=== PATIENT | female | born 1970 | race American Indian/Alaskan Native ===

== ENCOUNTER 2021-04-19 11:22 | Day surgery (SDC) | payer BC ==
--- NOTE | 2021-04-14 07:59 | History and Physical Report ---
History of Present Illness Date of examination: 04/12/21 History of present illness: Patient has been reassessed/reevaluated. H&P has been reviewed. No interval changes. This is a 50 years old female who presents with menstrual disorder. The symptoms began 3 months ago. She complains of heavy bleeding, dysmenorrhea, clotting, history of fibroids, fatigue and cramping. Interval between menses is 28 days and 30 days. Menstrual flow lasts > 7 days. Patient's work up has included a transvaginal ultrasound which revealed multiple leiomyomas. Patient's symptoms when present disrupts her normal daily activities Patient desires definitive treatment ] Vital Signs: Patient Profile: 50 Years Old Female LMP: 04/12/2021 Height: 72 inches Weight: 245 pounds BMI: 33.22 Temp: 98.1 degrees F BP sittin / 80 (left arm) Menstrual History: LMP (date): 04/12/2021 LMP - Character: heavy Menarche: 15 Menses interval: 28-30 days Menstrual flow: 5-7 days Current Method of Contraception: None Past History : 7 Term Births: 4 Premature Births: 0 Living Children: 4 Para: 4 Mult. Births: 0 Prev : 0 Aborta: 3 Elect. Ab: 1 Spont. Ab: 2 Ectopics: 0 Current Allergies (reviewed today): No known allergies Past Medical History: Glaucoma Anesthetic Complications Anemia (2015) Blood Transfusion (2016) Fibroids Past Surgical History: Myomectomy (2015) Cholecystectomy D&C: Father - Has Heart Disease - Entered On: 03/02/2021 Father - Has Diabetes - Entered On: 03/02/2021 Mother - Has Hypertension - Entered On: 03/02/2021 Father - Has Hypertension - Entered On: 03/02/2021 Social History: Marital Status: /Engaged Children: Occupation: Health dept COVID response Smoking History: Patient is a former smoker. Risk Factors: Smoked Tobacco Use: Never smoker Smokeless Tobacco Use: Never Passive Smoke Exposure: no HIV High Risk Behavior: low risk Caffeine Use: 0 drinks per day Exercise: no Seatbelt Use: 100 % Alcohol Use: yes Type: occ Previous Tobacco Use: Signed On - 03/15/2021 Smoked Tobacco Use: Never smoker Smokeless Tobacco Use: Never Passive Smoke Exposure: no Alcohol Use: yes Type: occ Drug Use: no [employer] History Operations: Myomectomy (2016) Cholecystectomy D&C: Anesthesia Complications: yes Abnormal PAP: negative Uterine Anomaly: positive fibroids Infection History HIV Risk Eval: low risk Hepatitis B Risk Eval: low risk Hx of STD: gonorrhea Review of Systems General Complains of fatigue. Denies fever, chills, sweats, anorexia, weakness, malaise, weight loss and sleep disorder. Complains of menorrhagia and painful periods. Denies vaginal discharge, incontinence, dysuria, hematuria, urinary frequency, amenorrhea, abnormal vaginal bleeding, pelvic pain, genital sores, decreased libido, painful sex, urinary urgency, hot flashes, vaginal dryness, va ginal itching and vaginal odor. CV Denies chest pains, palpitations, syncope, dyspnea on exertion, orthopnea, PND and peripheral edema. Resp Denies cough, dyspnea at rest, excessive sputum, hemoptysis, wheezing and pleurisy. GI Denies nausea, vomiting, diarrhea, constipation, change in bowel habits, abdominal pain, melena, hematochezia, jaundice, gas/bloating, indigestion/heartburn, dysphagia and odynophagia. Breast Denies left breast lump, right breast lump, nipple discharge, bloody discharge from nipple, breast pain, abnormal mammogram and breast enlargement. Psych Denies depression, anxiety, irritability and mood swings. Past History Past Medical History: other (See HPI for details) Past Surgical History: Other (See HPI for details) Social history: full code, other (See HPI for details) Family history: other (See HPI for details) Medications and Allergies Allergies Allergy/AdvReac Type Severity Reaction Status Date / Time banana Allergy Unknown Verified 04/14/21 15:51 codeine Allergy Tachycardia Verified 04/14/21 15:51 egg Allergy Unknown Verified 04/14/21 15:51 Fish Containing Products Allergy Unknown Verified 04/14/21 15:51 Home Medications Medication Instructions Recorded Confirmed Last Taken Type Brimonidine Tartrate/Timolol 1 drop OU HS 04/14/21 04/19/21 04/19/21 History [Combigan 0.2%-0.5% Eye Drops] Fexofenadine HCl [Deepa Allergy] 180 mg PO QAM 04/14/21 04/19/21 04/18/21 History Latanoprost 0.005% 1 drop OU BID 04/14/21 04/19/21 04/18/21 History Montelukast [Singulair] 10 mg PO QPM 04/14/21 04/19/21 04/18/21 History Sertraline [Zoloft] 25 mg PO QDAY 04/19/21 04/19/21 04/18/21 History Review of Systems Constitutional: other (See HPI for details) Exam - Physical Exam Narrative exam: HEENT: normocephalic, no lesions or deformities Chest: respiratory effort normal, clear to auscultation CV: regular, normal S1-S2, no murmur, no rub, no gallop Abdomen: Obese multiple surgical scar normal bowel sounds, soft, nontender, no HSM Neuro: no gross anomalities Extremities: no clubbing, cyanosis, or edema [employer] Exams Vulva/Vagina: No lesions, normal BUS, normal rugae Uterus: unable to palpate due to obesity Adnexae: unable to palpate due to obesity Rectovaginal: exam defered Results - Labs CBC & Chem 7: 04/15/21 11:45 Assessment and Plan - Patient Problems (1) Menorrhagia Current Visit: No Status: Acute Qualifiers: Menorrhagia type: premenopausal Qualified Code(s): N92.4 - Excessive bleeding in the premenopausal period Plan to address problem: Probably secondary to leiomyomas. Discussed with patient various medical, surgical and radiological therapies common for treatment including expectant management, myomectomy hysterectomy and uterine artery embolization. Patient desires ablation Information given Discussed risks and benefits of procedure. Informed endometrial ablation does not treat dymenorrhea or myoma and is less effective when myomas are present.. Patient does not desire future fertility. Patient desires least invasive procedure Discussed risk of surgery including infection, bleeding and risk of perforating her uterus. Discuused postoperative symptom of vaginal duscharge and uterine cramping. Questions answered. Patient understands and desires to proceed (2) Intramural leiomyoma of uterus Current Visit: No Status: Acute Plan to address problem: Probable etiology of #1 (3) Anemia Current Visit: No Status: Acute Qualifiers: Iron deficiency anemia type: chronic blood loss Plan to address problem: Probably secondary to # 1 (4) Glaucoma Current Visit: No Status: Chronic Qualifiers: Glaucoma stage: stage unspecified
[2021-04-15 12:49] LABS: Hematocrit 28.6 % (30.3-42.9); Hemoglobin 8.6 gm/dl (10.1-14.3); Mean Corpuscular HGB Conc 30 % (30-34); Platelet Count 363 K/mm3 (140-440); Red Cell Distribution Width 17.2 % (13.2-15.2)
[2021-04-15 16:41] LABS: Mean Corpuscular Volume 64 fl (79-97)
--- NOTE | 2021-04-19 11:03 | Anesthesia Day of Surgery ---
Anesthesia Day of Surgery - Day of Surgery Patient Examined: Yes Patient H&P Reviewed: Yes Patient is NPO: Yes
--- NOTE | 2021-04-19 11:04 | Anesthesia Consultation ---
Anesthesia Consult and Med Hx Date of service: 04/19/21 - Airway Anesthetic Teeth Evaluation: Good, Caps, Crowns, Bridges ROM Head & Neck: Adequate Mental/Hyoid Distance: Adequate Mallampati Class: Class II Intubation Access Assessment: Good - Pre-Operative Health Status ASA Pre-Surgery Classification: ASA2 Proposed Anesthetic Plan: General - Central Nervous System Hx Psychiatric Problems: Yes (Anxiety/Depression) - Gastrointestinal Hx Gastroesophageal Reflux Disease: No - Hematic Hx Anemia: Yes (8.6) Hx Sickle Cell Disease: No - Other Systems Hx Cancer: No
[~2021-04-19 11:22] MED LIST: HYDROmorphone 1 MG/1 ML INJ IV PRN; LACTATED RINGERS 1,000 ML IV SCH; ONDANSETRON 4 MG/2 ML INJ IV PRN
[2021-04-19] MEDS ORDERED: MIDAZOLAM 2 MG/2 ML INJ IV NR (12:00)
[2021-04-19] MEDS ORDERED: fentaNYL 100 MCG/2 ML INJ ONE (12:02)
[2021-04-19] MEDS ORDERED: LIDOCAINE MPF (2%) 20 MG/1 ML VIAL 5 ML ONE (12:02)
[2021-04-19] MEDS ORDERED: propofoL 200 MG/20 ML VIAL IV ONE (12:03)
[2021-04-19] MEDS ORDERED: SODIUM CHLORIDE 0.9% IRRIG SOLN 2000 ML IR ONE (12:38)
[2021-04-19] MEDS ORDERED: dexAMETHasone 20 MG/5 ML VIAL ONE (12:40)
[2021-04-19] MEDS ORDERED: ONDANSETRON 4 MG/2 ML INJ ONE (12:40)
[2021-04-19] MEDS ORDERED: SILVER NITRATE APPLICATOR 1 EA TP ONE ×2 (12:50→12:51)
--- NOTE | 2021-04-19 13:06 | Operative Report ---
Operative Report Operative Report: Date of procedure: April 19, 2021 Pre-operative diagnosis: Menorrhagia Post-operative diagnosis: Same Procedure name(s): NovaSure endometrial ablation with hysteroscopy Surgeon: Laurent Astudillo MD Appraisal Analyst: None Anesthesia: General EBL: Minimal Complications: None Findings: [] Specimen(s): [] Procedure: Patient was brought to operating room. Where general anesthesia was induced on difficulty. She was placed in the dorsal lithotomy position. Prepped and draped in usual sterile manner. Urinary bladder was emptied with a red rubber catheter. Speculum was placed in the vagina. The cervical length and uterine cavity was then assessed with a sound. Cervical length was 4.0 cm the total uterine cavity was 10 cm. The hysteroscope was then placed through the cervical os. With the findings as noted above. The NovaSure was then placed through the cervical os the uterine width was then measured at the 4.4 cm. After passing the testing for cavity integrity, and NovaSure ablation was then started. The power setting was at 145 and the procedure lasted 63 seconds. The NovaSure applicator was then removed. There was large amount of tissue on the NovaSure. Post procedure hysteroscopy showed a complete cavity ablation. Our instruments are removed. The patient tolerated the procedure well and was awakened in the operating room. Accompanied to recovery in good condition.
--- NOTE | 2021-04-19 13:09 | Short Stay Summary ---
Short Stay Documentation Date of service: 04/19/21 - History Principal diagnosis: Menorrhalgia H&P: dictated Past Medical History: other (See HPI for details) Past Surgical History: Other (See HPI for details) Social history: full code, other (See HPI for details) - Allergies and Medications Current Medications: Allergies banana Allergy (Verified 04/14/21 15:51) Unknown Found on testing codeine Allergy (Verified 04/14/21 15:51) Tachycardia egg Allergy (Verified 04/14/21 15:51) Unknown Found on testing Fish Containing Products Allergy (Verified 04/14/21 15:51) Unknown Found on testing Home Medications Medication Instructions Recorded Confirmed Last Taken Type Brimonidine Tartrate/Timolol 1 drop OU HS 04/14/21 04/19/21 04/19/21 History [Combigan 0.2%-0.5% Eye Drops] Fexofenadine HCl [Deepa Allergy] 180 mg PO QAM 04/14/21 04/19/21 04/18/21 History Latanoprost 0.005% 1 drop OU BID 04/14/21 04/19/21 04/18/21 History Montelukast [Singulair] 10 mg PO QPM 04/14/21 04/19/21 04/18/21 History Azelastine 0.1% (Nf) [Astelin (Nf)] 1 spr NS DAILY 04/19/21 04/19/21 04/18/21 History Clarithromycin [Biaxin] 500 mg PO BID 04/19/21 04/19/21 04/18/21 History DOXYCYCLINE Hyclate [Vibramycin 100 mg PO Q12HR #14 capsule 04/19/21 Unknown Rx CAP] Ibuprofen [Motrin] 800 mg PO TID PRN #30 tablet 04/19/21 Unknown Rx Sertraline [Zoloft] 25 mg PO QDAY 04/19/21 04/19/21 04/18/21 History Active Medications Hydromorphone HCl (Hydromorphone 1 Mg/1 Ml Inj) 0.25 mg IV Q10MIN PRN PRN Reason: Pain, Moderate (4-6) Hydromorphone HCl (Hydromorphone 1 Mg/1 Ml Inj) 0.5 mg IV Q10MIN PRN PRN Reason: Pain , Severe (7-10) Lactated Ringer's (Lactated Ringers) 1,000 mls @ 125 mls/hr IV DIRECT SHAHID Midazolam HCl (Midazolam 2 Mg/2 Ml Inj) 2 mg IV PREOP NR Stop: 04/19/21 23:59 Ondansetron HCl (Ondansetron 4 Mg/2 Ml Inj) 4 mg IV ONCE PRN PRN Reason: Nausea And Vomiting - Physical exam General appearance: no acute distress HEENT: Atraumatic Lungs: Normal air movement Breasts: deferred Heart: Regular rate Gastrointestinal: normal Female Genitourinary: normal Rectal Exam: deferred Extremities: no ischemia, pulses intact - Brief post op/procedure progress note Date of procedure: 04/19/21 (See operative note for details) - Hospital course Hospital course: Patient was admitted underwent the above him procedure without any complications. Patient will be discharged with follow-up in office in 1-2 weeks for postop check. - Disposition Condition at discharge: Good Disposition: 01 HOME / SELF CARE / HOMELESS - Discharge Diagnoses (1) Menorrhagia Status: Acute Qualifiers: Menorrhagia type: premenopausal Qualified Code(s): N92.4 - Excessive bleeding in the premenopausal period (2) Intramural leiomyoma of uterus Status: Acute (3) Anemia Status: Acute Qualifiers: Iron deficiency anemia type: chronic blood loss (4) Glaucoma Status: Chronic Qualifiers: Glaucoma stage: stage unspecified Short Stay Discharge Plan Activity: no restrictions Diet: regular Additional Instructions: Patient to call office for any fever, chills, nausea, vomiting or pain not controlled by pain medication. Follow up with: PRIMARY CARE, [Primary Care Provider] - 7 Days Prescriptions: Ibuprofen [Motrin] 800 mg PO TID PRN #30 tablet PRN Reason: Pain DOXYCYCLINE Hyclate [Vibramycin CAP] 100 mg PO Q12HR #14 capsule
[2021-04-19 14:13] VITALS: BP 126/66
--- NOTE | 2021-04-19 18:46 | Post Anesthesia Evaluation ---
- Post Anesthesia Evaluation Patient Participated: Yes Airway Patent: Yes Stable Respiratory Function: Yes Nausea/Vomiting: No Temp > 96.8F: Yes Pain Manageable: Yes Adequeate Hydration: Yes Anesthesia Complications: No Block Receding Appropriately: Not Applicable Patient on Ventilator: No
== END 2021-04-19 14:50 | disposition home or self-care (01) ==
LOC: OR 11:22
PROVIDERS: ATTEND Obstetrics & Gynecology
PROC: 0UDB8ZZ Extraction of Endometrium, Via Natural or Artificial Opening Endoscopic (ICD-10-PCS; principal; 2021-04-19)
DX: N92.4 Excessive bleeding in the premenopausal period (principal); N92.0 Excessive and frequent menstruation with regular cycle; D25.1 Intramural leiomyoma of uterus; D64.9 Anemia, unspecified; F41.9 Anxiety disorder, unspecified; F32.9 Major depressive disorder, single episode, unspecified; Z90.49 Acquired absence of other specified parts of digestive tract; Z98.890 Other specified postprocedural states; Z79.899 Other long term (current) drug therapy; Z88.5 Allergy status to narcotic agent; Z88.8 Allergy status to other drugs, medicaments and biological substances
CPT/HCPCS: 36415; 58563; 84703; 85027; A4217; J1100; J2250; J2405; J2704; J3010; J7120; U0003